=== PATIENT | female | born 1990 | race Asian ===

== ENCOUNTER → 2020-03-10 | Outpatient (CLI) | payer OTHER ==
[2020-03-11 05:30] LABS: RUBELLA AB IGG-REFLAB 5.04 index (Immune >0.99); RUBEOLA (MEASLES) IGG 25.7 AU/mL (Immune >16.4)
== END | disposition home or self-care (01) ==
LOC: LABPV 11:15
PROVIDERS: ATTEND Internal Medicine
DX: Z02.1 Encounter for pre-employment examination (principal)
CPT/HCPCS: 86706; 86735; 86762; 86765; 86787